=== PATIENT | male | born 1965 | race Caucasian/White ===

== ENCOUNTER 2016-05-15 11:51 | Emergency (ER) | payer OTHER ==
[~2016-05-15] VITALS: Ht 165.1 cm; Wt 80.8 kg
[~2016-05-15 11:51] MED LIST: ASPIR-LOW81 MG PO; ATARAX,VISTARIL50 MG PO; BUSPAR10 MG PO; BUSPAR15 MG PO; CITALOPRAM HBR20 MG PO; CLONAZEPAM2 MG PO; DESYREL 150 MG150 MG PO; DESYREL100 MG PO; EFFEXOR XR37.5 MG PO; FLUOXETINE HCL20 MG PO; GEODON80 MG PO; HYDROXYZINE PAM25 MG PO; METHADONE HCL40 MG; METHADONE10 MG PO; MINIPRESS2 MG PO; NOHOMEMEDS; OXYCODONE HCL5 MG PO; PRILOSEC20 MG PO; PROTONIX40 MG PO; PROZAC20 MG PO; ZANTAC75 M1 PO
[2016-05-15 12:29] LABS: ADD MIUA? YES; BILIRUBIN MODERATE; BLOOD NEGATIVE; COLOR DK YELLOW ((YELLOW)); GLUCOSE (STRIP) NEGATIVE; KETONES >=80; LEUKOCYTES SMALL; NITRITE NEGATIVE; PROTEIN (STRIP) 30; SPECIFIC GRAVITY 1.028 (1.000-1.030)
[2016-05-15 12:45] LABS: BACTERIA RARE; CASTS NONE SEEN /LPF; CRYSTALS NONE SEEN; EPITHELIAL CELLS NONE SEEN; MUCUS 3+; RED BLOOD CELLS NONE SEEN /HPF (0-5); UCUL ADDED? NO
[2016-05-15 12:53] LABS: AMPHETAMINE NEGATIVE (500 ng/mL); BENZODIAZEPINES PRESUMPTIVE POSITIVE (150 ng/mL); COCAINE NEGATIVE (150 ng/mL); METHADONE PRESUMPTIVE POSITIVE (200 ng/mL); METHAMPHETAMINE NEGATIVE (500 ng/mL); OPIATES (MORPHINE) NEGATIVE (100 ng/mL); PHENCYCLIDINE NEGATIVE (25 ng/mL); THC CANNABINOIDS PRESUMPTIVE POSITIVE (50 ng/mL); TRICYCLIC ANTIDEPRESSANTS NEGATIVE (300 ng/mL)
[2016-05-15 12:54] LABS: ADD MEDTOX COMMENT Y; BARBITURATES NEGATIVE (200 ng/mL); INTERNAL CONTROLS VALID? YES; OXYCODONE NEGATIVE (100 ng/mL); PROPOXYPHENE NEGATIVE (300 ng/mL)
[2016-05-15 13:05] LABS: CHLORIDE 105 mEq/L (99-109); POTASSIUM 3.7 mEq/L (3.7-5.4); SODIUM 139 mEq/L (136-147)
[2016-05-15 13:07] LABS: GLUCOSE 102 mg/dL (70-99)
[2016-05-15 13:08] LABS: ANION GAP 14 MEQ/L (2-14)
[2016-05-15 13:09] LABS: TOTAL BILIRUBIN 0.6 mg/dL (0.0-1.0)
[2016-05-15 13:10] LABS: ALKALINE PHOSPHATASE 76 IU/L (3-129); SERUM ETHYL ALCOHOL < 10 mg/dL
[2016-05-15 13:11] LABS: GFR ESTIMATE (CALCULATED) > 59 mL/min/
[2016-05-15 13:12] LABS: UREA NITROGEN (BUN) 9 mg/dL (9-23)
[2016-05-15 13:14] LABS: ICTOTEST POSITIVE
[2016-05-15 13:37] LABS: BENZODIAZEPINES, URINE SCREEN POSITIVE (200 ng/mL)
[2016-05-15 14:09] LABS: HEMATOLOGY COMMENT 1 COLD AGGLUTININS
[2016-05-15 14:11] LABS: MCH 33.3 PG (29.0-34.0); MCHC 35.8 G/DL (30.0-36.0); MCV 92.8 FL (86-99); MEAN PLAT.VOLUME 10.7 uM^3 (9.0-12.4); PLATELET COUNT 160 K/uL (156-360); RBC DIS.WIDTH-CV 12.7 % (11.8-14.6); RED BLOOD COUNT 5.17 M/uL (4.00-5.50); WHITE BLOOD COUNT 6.1 K/uL (4.1-10.2)
[2016-05-16 10:57] VITALS: BP 125/73
== END 2016-05-16 11:18 | disposition home or self-care (01) ==
LOC: EME → EDBD 11:51 → EME 11:51
PROVIDERS: Emergency Medicine
DX: F33.2 Major depressive disorder, recurrent severe without psychotic features (principal); R45.851 Suicidal ideations; F60.9 Personality disorder, unspecified; F15.10 Other stimulant abuse, uncomplicated; F19.10 Other psychoactive substance abuse, uncomplicated; F10.129 Alcohol abuse with intoxication, unspecified; J45.909 Unspecified asthma, uncomplicated; G89.29 Other chronic pain; I10 Essential (primary) hypertension; K21.9 Gastro-esophageal reflux disease without esophagitis; F17.200 Nicotine dependence, unspecified, uncomplicated
CPT/HCPCS: 80053; 81003; 84999; 85027; 90839; 99281; 99285; G0480; Q0177

== ENCOUNTER 2016-08-17 22:51 | Emergency (ER) | payer OTHER ==
[2016-08-17 23:06] LABS: BASOPHIL COUNT 0.1 K/uL (0-0.1); EOSINOPHIL COUNT 0.1 K/uL (0-0.3); HEMATOCRIT 47.4 % (38.0-50.0); IMMATURE GRANULOCYTE (%) 0.7 % (0.0-0.7); IMMATURE GRANULOCYTE COUNT 0.1 K/uL; LYMPHOCYTE COUNT 3.9 K/uL (1.0-2.8); MCHC 34.6 G/DL (30.0-36.0); MCV 89.6 FL (86-99); MEAN PLAT.VOLUME 8.9 uM^3 (9.0-12.4); MONOCYTE (%) 6.8 % (3-12); MONOCYTE COUNT 0.6 K/uL (0-0.8); PLATELET COUNT 196 K/uL (156-360); RBC DIS.WIDTH-CV 12.2 % (11.8-14.6); RBC DIS.WIDTH-SD 39.7 % (39-53); RED BLOOD COUNT 5.29 M/uL (4.00-5.50); WHITE BLOOD COUNT 8.8 K/uL (4.1-10.2)
[2016-08-17 23:15] LABS: AMYLASE 91 IU/L (1-118); CHLORIDE 106 mEq/L (99-109); POTASSIUM 3.9 mEq/L (3.7-5.4); SODIUM 139 mEq/L (136-147)
[2016-08-17 23:17] LABS: GLUCOSE 144 mg/dL (70-99)
[2016-08-17 23:18] LABS: ANION GAP 13 MEQ/L (2-14)
[2016-08-17 23:20] LABS: SERUM ETHYL ALCOHOL 230 mg/dL
[2016-08-17 23:21] LABS: GFR ESTIMATE (CALCULATED) > 59 mL/min/
[2016-08-17 23:22] LABS: UREA NITROGEN (BUN) 12 mg/dL (9-23)
[2016-08-17 23:24] LABS: LIPASE 25 U/L (1.0-51.0)
== END 2016-08-18 02:24 | disposition home or self-care (01) ==
LOC: EME 22:51 → TRA 22:51
PROVIDERS: Emergency Medicine
PROC: 3E0234Z Introduction of Serum, Toxoid and Vaccine into Muscle, Percutaneous Approach (ICD-10-PCS; principal; 2016-08-17)
DX: F10.129 Alcohol abuse with intoxication, unspecified (principal); S01.81XA Laceration without foreign body of other part of head, initial encounter; S50.312A Abrasion of left elbow, initial encounter; W19.XXXA Unspecified fall, initial encounter; F11.90 Opioid use, unspecified, uncomplicated; Z23 Encounter for immunization; Y90.7 Blood alcohol level of 200-239 mg/100 ml; F17.200 Nicotine dependence, unspecified, uncomplicated
CPT/HCPCS: 70450; 72125; 73070; 80048; 81003; 82150; 83690; 85025; 86850; 86900; 86901; 99281; 99285; G0480; J2310

== ENCOUNTER 2017-01-31 17:53 | Emergency (ER) | payer OTHER ==
[~2017-01-31] VITALS: Ht 165.1 cm; Wt 98.9 kg
[2017-01-31 18:34] LABS: ADD MIUA? YES; BILIRUBIN NEGATIVE; BLOOD NEGATIVE; COLOR AMBER ((YELLOW)); GLUCOSE (STRIP) NEGATIVE; KETONES 5; LEUKOCYTES NEGATIVE; NITRITE NEGATIVE; PROTEIN (STRIP) NEGATIVE; SPECIFIC GRAVITY 1.032 (1.000-1.030)
[2017-01-31 18:52] LABS: BACTERIA RARE /HPF; EPITHELIAL CELLS RARE /HPF; MUCUS TRACE /LPF; RED BLOOD CELLS 0-5 /HPF (0-5); UCUL ADDED? NO; WHITE BLOOD CELLS 0-5 /HPF (0-5)
[2017-01-31 19:18] LABS: HEMATOCRIT 48.3 % (38.0-50.0); MCH 31.1 PG (29.0-34.0); MCHC 34.2 G/DL (30.0-36.0); MCV 91.1 FL (86-99); MEAN PLAT.VOLUME 9.3 uM^3 (9.0-12.4); PLATELET COUNT 134 K/uL (156-360); RBC DIS.WIDTH-CV 12.5 % (11.8-14.6); RBC DIS.WIDTH-SD 41.5 % (39-53); WHITE BLOOD COUNT 5.2 K/uL (4.1-10.2)
[2017-01-31 19:30] LABS: CHLORIDE 101 mEq/L (99-109); SODIUM 137 mEq/L (136-147)
[2017-01-31 19:32] LABS: GLUCOSE 88 mg/dL (70-99)
[2017-01-31 19:34] LABS: ANION GAP 12 MEQ/L (2-14); TOTAL BILIRUBIN 0.6 mg/dL (0.0-1.0)
[2017-01-31 19:36] LABS: ALKALINE PHOSPHATASE 91 IU/L (3-129); GFR ESTIMATE (CALCULATED) > 59 mL/min/
[2017-01-31 19:37] LABS: UREA NITROGEN (BUN) 14 mg/dL (9-23)
[2017-01-31] MEDS ORDERED: ROXICODONE5 MG PO (21:14)
[2017-01-31] MEDS ORDERED: ZOFRAN ODT4 MG PO (21:14)
[2017-01-31 21:30] VITALS: BP 140/81
== END 2017-01-31 21:31 | disposition home or self-care (01) ==
LOC: EME 17:53 → EXP 17:53
DX: M54.9 Dorsalgia, unspecified (principal); R11.2 Nausea with vomiting, unspecified; F17.200 Nicotine dependence, unspecified, uncomplicated
CPT/HCPCS: 74176; 80053; 81003; 85027; 99281; 99283

== ENCOUNTER 2017-11-25 17:38 | Emergency (ER) | payer OTHER ==
[~2017-11-25] VITALS: Ht 165.1 cm; Wt 91.0 kg
[~2017-11-25 17:38] MED LIST changes: +ROXICODONE5 MG PO; +ZOFRAN ODT4 MG PO
[2017-11-25 17:56] LABS: APPEARANCE CLOUDY ((CLEAR)); BILIRUBIN MODERATE; BLOOD LARGE; COLOR AMBER ((YELLOW)); GLUCOSE (STRIP) NEGATIVE; KETONES 5; LEUKOCYTES NEGATIVE; NITRITE NEGATIVE; PROTEIN (STRIP) 100; SPECIFIC GRAVITY 1.033 (1.000-1.030)
[2017-11-25 17:57] LABS: ICTOTEST ND
[2017-11-25 18:11] LABS: HEMATOCRIT 50.5 % (38.0-50.0); HEMOGLOBIN 17.5 G/DL (12.5-16.6); MCH 31.1 PG (29.0-34.0); MCHC 34.7 G/DL (30.0-36.0); MCV 89.9 FL (86-99); PLATELET COUNT 184 K/uL (156-360); RBC DIS.WIDTH-CV 12.4 % (11.8-14.6); RBC DIS.WIDTH-SD 41.4 % (39-53); RED BLOOD COUNT 5.62 M/uL (4.00-5.50); WHITE BLOOD COUNT 15.8 K/uL (4.1-10.2)
[2017-11-25 18:11] LABS: EPITHELIAL CELLS RARE /HPF; WHITE BLOOD CELLS NONE SEEN /HPF (0-5)
[2017-11-25 18:12] LABS: BACTERIA 1+ /HPF; MUCUS 2+ /LPF
[2017-11-25 18:22] LABS: CHLORIDE 102 mEq/L (99-109); POTASSIUM 4.4 mEq/L (3.7-5.4); SODIUM 138 mEq/L (136-147)
[2017-11-25 18:23] LABS: GLUCOSE 149 mg/dL (70-99)
[2017-11-25 18:27] LABS: CREATININE 1.1 mg/dL (0.6-1.3); GFR ESTIMATE (CALCULATED) > 59 mL/min/ (58.99-99999)
[2017-11-25 18:28] LABS: UREA NITROGEN (BUN) 19 mg/dL (9-23)
[2017-11-25 20:06] VITALS: BP 119/87
[2017-11-25] MEDS ORDERED: PYRIDIUM100 MG PO (20:08)
[2017-11-25] MEDS ORDERED: LEVAQUIN500 MG PO (20:08)
[2017-11-25] MEDS ORDERED: ROXICODONE5 MG PO (20:08)
== END 2017-11-25 20:06 | disposition home or self-care (01) ==
LOC: EME 17:38 → RME 17:38
PROVIDERS: Nurse Practitioner Family
DX: N39.0 Urinary tract infection, site not specified (principal); N45.2 Orchitis; N43.3 Hydrocele, unspecified; B19.20 Unspecified viral hepatitis C without hepatic coma; F17.200 Nicotine dependence, unspecified, uncomplicated; Z88.6 Allergy status to analgesic agent; Z88.5 Allergy status to narcotic agent; Z88.8 Allergy status to other drugs, medicaments and biological substances
CPT/HCPCS: 76870; 80048; 81003; 85027; 99281; 99284